=== PATIENT | female | born 1990 | race Two or more races ===

== ENCOUNTER 2020-01-12 07:40 | Outpatient (REF) | payer OTHER, SELFPAY ==
[2020-01-12 08:05] LABS: COVID-19 Test Negative (Negative); IDNOW Serial# 55D5AD1C
== END 2020-01-12 07:41 | disposition home or self-care (01) ==
LOC: HO.EMPCOV 07:40
PROVIDERS: PCP Internal Medicine; Visit Provider Internal Medicine
DX: Z20.828 Contact with and (suspected) exposure to other viral communicable diseases (principal)
CPT/HCPCS: 87635; C9803

== ENCOUNTER 2020-01-31 10:15 | Outpatient (REF) | payer OTHER, SELFPAY ==
[2020-01-31 10:53] LABS: COVID-19 Test Positive (Negative)
== END 2020-01-31 10:16 | disposition home or self-care (01) ==
LOC: HO.EMPCOV 10:15
PROVIDERS: PCP Internal Medicine; Visit Provider Internal Medicine
DX: Z20.828 Contact with and (suspected) exposure to other viral communicable diseases (principal)
CPT/HCPCS: 87635; C9803

== ENCOUNTER 2024-04-26 12:47 | Outpatient (AMB) | payer OTHER, SELFPAY ==
[2024-04-26 12:50] VITALS: BP 108/64; PULSE 70; RESP 20; TEMP 37.2; O2SAT 98; BMI 38.7
--- NOTE | 2024-04-26 12:50 | MHC.PC.OV ---
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 Pt last seen apporx 2015 at this office by Dr. Milton. Medical records have not been requested and have not been received. 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 Milton 2015 Last visit: Last PE: Specialist:no OBGYN:[facility] Past medical history: Depression-not confirmed, per patient Medications: Family HX: maternal grand mother htn, dm, mother dm. Problem: Numbness in the outer toes in the feet, almost feels like they are falling asleep in both legs. The patient reports that this is not constant and it does not happen everyday. 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 1. Little interest or pleasure in doing things: not at all 2. Feeling down, depressed, or hopeless: several days 3. Trouble falling or staying asleep, or sleeping too much: not at all 4. Feeling tired or having little energy: several days 5. Poor appetite or overeating: not at all 6. Feeling bad about yourself - or that you are a failure or have let yourself or your family down: not at all 7. Trouble concentrating on things, such as reading the newspaper or watching television: not at all 8. Moving or speaking so slowly that other people could have noticed. Or the opposite - being so fidgety or restless that you have been moving around a lot more than usual: not at all 9. Thoughts that you would be better off or of hurting yourself in some way: not at all Total score: 2 Depression Screening Interpretation: Negative Depression Screening Done: Yes 18095 - PHQ-9 Billing: Yes Source: Developed by Drs. Theodore Hurst, Alexandria Estrada, Cain Modi and colleagues, with an educational mikael from [employer]. Thrive Questionnaire Date Thrive assessed: 04/26/24 I am a: Patient What is your living situation today?: I have a steady place to live Within the past 12 months, did the food you bought not last and you didn't have the money to get more?: Never true Within the past 12 months, did you worry whether your food would run out before you got money to buy more?: Never true Do you have trouble paying for medicines?: No Do you have trouble getting transportation to medical appointments?: No Do you have trouble paying your heating and electricity bill?: No Do you have trouble taking care of your child, family member or friend?: No Do you have trouble with day-to-day activities such as bathing, preparing meals, shopping, managing finances, etc.?: No Are you currently unemployed and looking for a job?: No Are you interested in more education?: Yes Please select the resources that you would like help with: None Currently or been in a relationship where the following occur: No concerns reported THRIVE Score: 0 AUDIT C Alcohol Use Questionnaire (AUDIT-C) 1. How often do you have a drink containing alcohol?: Monthly or less 2. How many drinks containing alcohol do you have on a typical day when you are drinking?: 1 or 2 3. How often do you have six or more drinks on one occasion?: Never Total Score: 1 CHRIS-7 AMB Questionnaire CHRIS-7 Date CHRIS - 7 assessed: 04/26/24 Feeling nervous, anxious, or on edge: 0 = Not at all Not being able to stop or control worryin = Not at all Worrying too much about different things: 0 = Not at all Trouble relaxin = Not at all Being so restless that it is hard to sit still: 0 = Not at all Becoming easily annoyed or irritable: 0 = Not at all Feeling afraid as if something awful might happen: 0 = Not at all Total CHRIS-7 score (0-4 normal; 5-9 mild; 10-14 moderate; 15-21 severe): 0 Source: Developed by Drs. Theodore Hurst, Alexandria Estrada, Cain Modi and colleagues, with an educational mikael from [employer]. CHRIS-7 Assessment Billing CHRIS-7 Assessment Tool: CHRIS-7 Assessment 46413 Review of Systems Const Denies headache(s) Eyes Denies loss of vision ENT Denies vertigo, Denies dizziness, Denies headache(s) and Denies sore throat Card Denies chest pain, Denies leg edema and Denies lightheadedness Resp Denies cough, Denies hemoptysis and Denies wheezing GI Denies abdominal pain, Denies melena, Denies constipation, Denies diarrhea and Denies vomiting Denies urinary frequency, Denies dysuria and Denies urinary urgency Musc Denies arthralgias, Denies joint swelling, Reports numbness (intermittently in both legs/feet and outer toes) and Denies tingling Neuro Denies Abnormal speech present, Denies behavioral changes, Denies vertigo, Denies dizziness, Denies headache(s), Denies loss of vision, Denies memory loss, Reports numbness (intermittently in both legs/feet and outer toes) and Denies tingling Psych Denies anxiety, Denies behavioral changes, Denies depression, Denies memory loss and Denies panic attacks Maurice/Lymph Denies easy bleeding and Denies easy bruising Aller/Immun Denies wheezing Physical exam (Primary Care) Vital Signs: Last Vital Signs Temp 99.0 F 04/26/24 12:50 Pulse 70 04/26/24 12:50 Resp 20 04/26/24 12:50 BP 108/64 04/26/24 12:50 Pulse Ox 98 04/26/24 12:50 Oxygen Delivery Method Room Air 04/26/24 12:50 BMI result Body Mass Index 38.7 Tobacco/Smoking Status: Tobacco use Status Tobacco use date assessed 04/26/24 04/26/24 13:07 Patient Tobacco Use Status Never used Tobacco 04/26/24 13:07 e-Cigarette/Vaping Use Never Used 04/26/24 13:07 PHQ-9: PHQ-9 Score PHQ-9: Total score 2 04/26/24 13:25 Depression Screening Interpretation: Negative Thrive Assessment: Date of Thrive Assessment Date Thrive assessed 04/26/24 04/26/24 13:07 Currently or been in a relationship where the following occur: No concerns reported Const General: healthy appearing, no acute distress, alert and awake Nutritional Appearance: well nourished Orientation/consciousness: oriented to person, oriented to place and oriented to time HENMT Ears: TM's normal bilaterally General nose exam: Normal nasal mucous membranes and turbinates present Eyes Conjunctivae: conjunctivae normal Sclerae: sclerae normal Pupils: Equal, round and reactive pupils present Neck Neck: Yes no lymphadenopathy and Yes no JVD Thyroid: Thyroid normal Carotids: no bruits Resp Effort & Inspection: normal respiratory effort and not tachypneic Auscultation: no crackles, no rales, no rhonchi and no wheezes Cardio Rate: regular rate Rhythm: regular rhythm Heart sounds: no murmurs and normal S1 and S2 GI Palpation (GI): Soft to palpation, nontender, no hepatomegaly and no splenomegaly Auscultation: normal bowel sounds Skin General skin exam: no rashes or lesions noted and dry skin Neuro General: oriented to person, oriented to place and oriented to time Cranial nerves: Yes Equal, round and reactive pupils present Speech: No Abnormal speech present Gait exam (Neuro): Normal gait present Motor exam (neuro): no tremor noted Extrem Right upper extremity: full ROM Left upper extremity: full ROM Right lower extremity: full ROM; no edema Left lower extremity: full ROM; no edema Psych Mental Status: mental status grossly normal Speech and movement: Normal speech and movement present Affect: normal affect Attitude: cooperative Thought process: Normal thought process present Coding Level of Care Code New Pt Level 3 (48451) Diagnoses Numbness of both lower extremities R20.0 Additional Codes CHRIS-7 Assessment Billing - CHRIS-7 Assessment Tool: CHRIS-7 Assessment 97228 ([id number]) PHQ-9 - 24005 - PHQ-9 Billing: Yes ([id number]) Time Spent (min) 29 Assessment & Plan Assessment & Plan (1) Numbness of both lower extremities: Code(s): R20.0 - Anesthesia of skin Category: Medical Plan: The patient reports that at times setting at work-sometimes her outer toes go numb in both feet. 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 Will order blood work to evaluate. The patient to return in 6 weeks for annual physical Orders: Orders Complete Blood Count Auto Diff 05/03/24 Z00.00 - Encounter for general adult medical examination without abnormal findings Vitamin D 25-OH Total 05/03/24 Z00.00 - Encounter for general adult medical examination without abnormal findings TSH reflex Free T4 05/03/24 Z00. - Encounter for general adult medical examination without abnormal findings Vitamin B12 05/03/24 Z00. - Encounter for general adult medical examination without abnormal findings Magnesium 05/03/24 Z00.00 - Encounter for general adult medical examination without abnormal findings Comprehensive [place]. Panel Fast 05/03/24 Z00. - Encounter for general adult medical examination without abnormal findings UA CC w/rflx Micro + Cult 05/03/24 Z00. - Encounter for general adult medical examination without abnormal findings Glucose Fasting 05/03/24 Z00.00 - Encounter for general adult medical examination without abnormal findings
== END 2024-04-26 13:39 | disposition home or self-care (01) ==
LOC: HO.HMCH 12:48
DX: R20.0 Anesthesia of skin (principal)

== ENCOUNTER → 2024-04-26 12:47 | Outpatient (BNVA) | payer OTHER, SELFPAY | DX: Z76.89 Persons encountering health services in other specified circumstances (principal); R20.0 Anesthesia of skin | CPT/HCPCS: 96127 ==

== ENCOUNTER 2024-05-03 07:42 | Outpatient (REF) | payer OTHER, SELFPAY ==
[2024-05-03 07:58] LABS: MANUAL DIFF FLAG NO
[2024-05-03 08:12] LABS: Basophils Percent Auto 0.5 % (0-2); Eosinophils Absolute Auto 0.2 X10*3/uL (0.0-0.4); Eosinophils Percent Auto 2.7 % (0-4); Hematocrit 42.3 % (37.0-47.0); Hemoglobin 14.2 g/dl (12.0-16.0); Imm Gran Abs Auto 0.02 X10*3/uL (0.00-0.03); Imm Gran Pct Auto 0.2 % (0.0-0.4); Lymphocytes Absolute Auto 1.9 X10*3/uL (1.2-4.9); Lymphocytes Percent Auto 22.1 % (20-40); Mean Corpuscular HGB Conc 33.6 g/dl (31.0-35.0); Mean Corpuscular Hemoglobin 28.9 pg (27.0-33.0); Mean Corpuscular Volume 86.2 fL (80.0-98.0); Monocytes Absolute Auto 0.6 X10*3/uL (0.1-1.2); Monocytes Percent Auto 7.5 % (2-11); Neutrophils Absolute Auto 5.7 x10*3/uL (2.0-8.3); Platelet Count 232 X10*3/uL (160-400); Red Blood Count 4.91 X10*6/uL (4.20-5.50); Red Cell Distribution Width 12.1 % (11.0-16.0); White Blood Count 8.5 X10*3/uL (4.8-10.8)
[2024-05-03 08:33] LABS: Appearance Urine Clear; Color Urine Yellow; Glucose Urine UA Negative (Negative); Leukocyte Esterase Urine Negative (Negative); Nitrite Urine Negative (Negative); PH 5.5 (5.0-9.0); Urine Blood Negative (Negative); Urine Ketones Negative (Negative); Urine Protein Negative (Neg-Trace)
[2024-05-03 08:57] LABS: Alanine Aminotransferase 26 U/L (0-31); Albumin Level 4.1 g/dL (3.5-5.0); Alkaline Phosphatase 59 U/L (39-117); Anion Gap 10 (12-20); Aspartate Amino Transferase 19 U/L (5-31); Bilirubin Total 0.5 mg/dL (0.0-1.0); Blood Urea Nitrogen 15 mg/dL (9-16); Calcium 9.1 mg/dL (8.4-10.2); Carbon Dioxide 26 mmol/L (22-29); Chloride 109 mmol/L (96-108); Estimated Glomerular Filt Rate > 60; Glucose Fasting 97 mg/dL (60-99); Magnesium 1.9 mg/dL (1.6-2.6); Potassium 4.3 mmol/L (3.3-5.1); Sodium 141 mmol/L (135-145); Total Protein 7.1 g/dL (6.5-8.0)
[2024-05-03 09:16] LABS: Vitamin B12 360 pg/mL (200-900)
[2024-05-03 09:17] LABS: TSH reflex Free T4 1.58 uIU/mL (0.32-4.0); Vitamin D 25-OH Total 26.3 ng/mL (>30)
== END 2024-05-03 07:43 | disposition home or self-care (01) ==
LOC: HO.LAB 07:42
DX: Z00.00 Encounter for general adult medical examination without abnormal findings (principal)
CPT/HCPCS: 36415; 80053; 81003; 82306; 82607; 83735; 84443; 85025

== ENCOUNTER 2024-06-07 10:50 | Outpatient (AMB) | payer OTHER, SELFPAY ==
[2024-06-07 10:57] VITALS: BP 114/64; PULSE 72; RESP 20; TEMP 37.3; O2SAT 98; BMI 38.9
--- NOTE | 2024-06-07 10:57 | A.OFFPC_ITS ---
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 Required: No Radiator Specialist: Not Required per policy Accompanied by: Self / Same As Patient Allergies No Known Allergies [No Known Allergies*] Allergy (Verified 06/07/24 11:26) Medication List - Last Reconciled 06/07/24 by DEMETRIO Bahena fexofenadine (Darya Allergy) 180 mg PO DAILY Tobacco use date assessed: 06/07/24 Dental Screening Dental Screen Date: 06/07/24 Did you have a dental visit in the last 12 months?: No Did you have a dental problem in the last 6 months where you did not have access to dental care?: No Was dental information given to patient?: Patient has dentist HPI annual physical/ lab review HPI Details The patient is present for annual physical Dentist: have appt coming up Eye: up to date Snellen: Right: Left: Corrected vision: primarily glasses STI screening: Colonoscopy: 2019-she was have rectal bleeding, but the showed to be negative Pap Smer: up to date PHQ-9: Flu:up to date COVID: up to date Tdap: up to date Diet:regular Exercise: no The patient reports a history of right kidney cyst that bleeds intermittently The patient had recent labs done except lipid panel, this was ordered and the patient will get done as soon as possible [facility] Surgical History No pertinent past surgical history Family History Mother Hypertension Gestational diabetes Maternal Grandmother Diabetes Hypertension Social History Household Members: Spouse and Children Housing: House Alcohol intake: current Alcohol intake frequency: other Comment: Once a month Patient Tobacco Use Status: Never used Tobacco e-Cigarette/Vaping Use: Never Used Second Hand Smoke Exposure: No service: No 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 1. Little interest or pleasure in doing things: not at all 2. Feeling down, depressed, or hopeless: not at all 3. Trouble falling or staying asleep, or sleeping too much: not at all 4. Feeling tired or having little energy: several days 5. Poor appetite or overeating: not at all 6. Feeling bad about yourself - or that you are a failure or have let yourself or your family down: not at all 7. Trouble concentrating on things, such as reading the newspaper or watching television: not at all 8. Moving or speaking so slowly that other people could have noticed. Or the opposite - being so fidgety or restless that you have been moving around a lot more than usual: not at all 9. Thoughts that you would be better off or of hurting yourself in some way: not at all Total score: 1 Depression Screening Interpretation: Negative Depression Screening Done: Yes Source: Developed by Drs. Theodore Hurst, Alexandria Estrada, Cain Modi and colleagues, with an educational mikael from [employer]. Thrive Questionnaire Date Thrive assessed: 06/07/24 I am a: Patient What is your living situation today?: I have a steady place to live Within the past 12 months, did the food you bought not last and you didn't have the money to get more?: Never true Within the past 12 months, did you worry whether your food would run out before you got money to buy more?: Never true Do you have trouble paying for medicines?: No Do you have trouble getting transportation to medical appointments?: No Do you have trouble paying your heating and electricity bill?: No Do you have trouble taking care of your child, family member or friend?: No Do you have trouble with day-to-day activities such as bathing, preparing meals, shopping, managing finances, etc.?: No Are you currently unemployed and looking for a job?: No Are you interested in more education?: Yes Please select the resources that you would like help with: None Currently or been in a relationship where the following occur: No concerns reported THRIVE Score: 0 AUDIT C Alcohol Use Questionnaire (AUDIT-C) 1. How often do you have a drink containing alcohol?: Monthly or less 2. How many drinks containing alcohol do you have on a typical day when you are drinking?: 1 or 2 3. How often do you have six or more drinks on one occasion?: Never Total Score: 1 Score Reviewed/Action Taken: No CHRIS-7 AMB Questionnaire CHRIS-7 Date CHRIS - 7 assessed: 06/07/24 Feeling nervous, anxious, or on edge: 0 = Not at all Not being able to stop or control worryin = Not at all Worrying too much about different things: 0 = Not at all Trouble relaxin = Several days Being so restless that it is hard to sit still: 0 = Not at all Becoming easily annoyed or irritable: 0 = Not at all Feeling afraid as if something awful might happen: 0 = Not at all Total CHRIS-7 score (0-4 normal; 5-9 mild; 10-14 moderate; 15-21 severe): 1 Source: Developed by Drs. Theodore Hurst, Alexandria Estrada, Cain Modi and colleagues, with an educational mikael from [employer]. Review of Systems Const Denies headache(s) Eyes Denies loss of vision ENT Denies vertigo, Denies dizziness, Denies headache(s) and Denies sore throat Card Denies chest pain, Denies leg edema and Denies lightheadedness Resp Denies cough, Denies hemoptysis and Denies wheezing GI Denies abdominal pain, Denies melena, Denies constipation, Denies diarrhea and Denies vomiting Denies urinary frequency, Denies dysuria and Denies urinary urgency Musc Denies arthralgias, Denies joint swelling, Reports numbness (in her feet and toes intermittently) and Reports tingling (in her feet and toes intermittently) Neuro Denies Abnormal speech present, Denies behavioral changes, Denies vertigo, Den ies dizziness, Denies headache(s), Denies loss of vision, Denies memory loss, Reports numbness (in her feet and toes intermittently) and Reports tingling (in her feet and toes intermittently) Psych Denies anxiety, Denies behavioral changes, Denies depression, Denies memory loss and Denies panic attacks Maurice/Lymph Denies easy bleeding and Denies easy bruising Aller/Immun Denies wheezing Physical exam (Primary Care) Vital Signs: Last Vital Signs Temp 99.1 F 06/07/24 10:57 Pulse 72 06/07/24 10:57 Resp 20 06/07/24 10:57 BP 114/64 06/07/24 10:57 Pulse Ox 98 06/07/24 10:57 Oxygen Delivery Method Room Air 06/07/24 10:57 BMI result Body Mass Index 38.9 Tobacco/Smoking Status: Tobacco use Status Tobacco use date assessed 06/07/24 06/07/24 11:06 Patient Tobacco Use Status Never used Tobacco 06/07/24 10:58 e-Cigarette/Vaping Use Never Used 06/07/24 10:58 PHQ-9: PHQ-9 Score PHQ-9: Total score 1 06/08/24 08:58 Depression Screening Interpretation: Negative Thrive Assessment: Date of Thrive Assessment Date Thrive assessed 06/07/24 06/07/24 11:06 Currently or been in a relationship where the following occur: No concerns reported Const General: healthy appearing, no acute distress, alert and awake Nutritional Appearance: well nourished Orientation/consciousness: oriented to person, oriented to place and oriented to time HENMT Ears: TM's normal bilaterally General nose exam: Normal nasal mucous membranes and turbinates present Eyes Conjunctivae: conjunctivae normal Sclerae: sclerae normal Pupils: Equal, round and reactive pupils present Neck Neck: Yes no lymphadenopathy and Yes no JVD Thyroid: Thyroid normal Carotids: no bruits Resp Effort & Inspection: normal respiratory effort and not tachypneic Auscultation: no crackles, no rales, no rhonchi and no wheezes Cardio Rate: regular rate Rhythm: regular rhythm Heart sounds: no murmurs and normal S1 and S2 GI Palpation (GI): Soft to palpation, nontender, no hepatomegaly and no splenomegaly Auscultation: normal bowel sounds General: Yes no CVA tenderness Back/Spine/Pelvis Back: no CVA tenderness Skin General skin exam: no rashes or lesions noted and dry skin Neuro General: oriented to person, oriented to place and oriented to time Cranial nerves: Yes Equal, round and reactive pupils present Speech: No Abnormal speech present Gait exam (Neuro): Normal gait present Motor exam (neuro): no tremor noted Extrem Right upper extremity: full ROM Left upper extremity: full ROM Right lower extremity: full ROM; no edema Left lower extremity: full ROM; no edema Psych Mental Status: mental status grossly normal Speech and movement: Normal speech and movement present Affect: normal affect Attitude: cooperative Thought process: Normal thought process present Results Reviewed Results Reviewed: Laboratory Tests 05/03/24 05/03/24 07:51 07:52 WBC 8.5 RBC 4.91 Hgb 14.2 Hct 42.3 MCV 86.2 MCH 28.9 MCHC 33.6 RDW 12.1 Plt Count 232 Sodium 141 Potassium 4.3 Chloride 109 H Carbon Dioxide 26 Anion Gap 10 L BUN 15 Creatinine 0.68 Estimated GFR > 60 Fasting Glucose 97 Calcium 9.1 Magnesium 1.9 Total Bilirubin 0.5 AST 19 ALT 26 Alkaline Phosphatase 59 Total Protein 7.1 Albumin 4.1 Vitamin B12 360 25-OH Vitamin D Total 26.3 L TSH 1.58 Urine Color Yellow Urine Appearance Clear Urine pH 5.5 Ur Specific [place] 1.020 Urine Protein Negative Urine Glucose (UA) Negative Urine Ketones Negative Urine Blood Negative Urine Nitrite Negative Ur Leukocyte Esterase Negative Coding Level of Care Code Est Pt Prev Care 18-39y(84113) Diagnoses Annual physical exam Z00.00 Numbness of both lower extremities R20.0 Vitamin D deficiency E55.9 Time Spent (min) 38 Assessment & Plan Assessment & Plan (1) Annual physical exam: Code(s): Z00.00 - Encounter for general adult medical examination without abnormal fi ndings Category: Medical Plan: Preventative guidelines and recent labs reviewed with the patient. Up to date on most screenings, upcoming appt for dentist. Colonoscopy done 2019 for rectal bleeding which was negative. All general labs were done except lipid, which was ordered for the patient to get done riley. (2) Numbness of both lower extremities: Code(s): R20.0 - Anesthesia of skin Category: Medical Plan: Intermittent and mostly like positional, like when the patient sit and stand for extended periods. Encouraged wearing compression stockings to increased circulation in lower extremities. (3) Vitamin D deficiency: Code(s): E55.9 - Vitamin D deficiency, unspecified Category: Medical Plan: Encouraged Vitamin D3 1000IU, the patient will obtain via otc. Orders: Orders Lipid Panel 06/07/24 Z00.00 - Encounter for general adult medical examination without abnormal findings
== END 2024-06-07 11:44 | disposition home or self-care (01) ==
LOC: HO.HMCH 10:51
DX: Z00.00 Encounter for general adult medical examination without abnormal findings (principal); R20.0 Anesthesia of skin; E55.9 Vitamin D deficiency, unspecified

== ENCOUNTER 2024-08-25 07:47 | Outpatient (REF) | payer OTHER, SELFPAY ==
--- OUTSIDE RECORDS SUMMARY | 2024-08-25 07:51 | XMS_ITS | Patient Health Record ---
Author Organization [facility] Address [address] [place] [address] Care Team Providers Care Glass Embosser Name Role Phone Katlyn Guerrier Primary Care Provider UnavailNaldo Roy Jr Unavailable Reason For Referral No Information Medications Medication SIG (Take, Route, Frequency, Duration) Notes Start Date End Date Status Darya Active Colyte with Flavor Packs 240 GM As directed Orally Over the specified time. for 1 day(s) Active Viorele 0.15-0.02/0.01 MG (29/06) TAKE 1 TABLET BY MOUTH DAILY Oral for 84 Active Social History Tobacco Use: Social History Observation Description Date Details (start date - stop date) Never Smoker NA - NA Tobacco Use/Smoking Question Answer Notes Patient is a nonsmoker Alcohol Screen Question Answer Notes Did you have a drink contain ing alcohol in the past year? Yes How often did you have a dri nk containing alcohol in the past year? Monthly or less (1 point) How many drinks did you have on a typical day when you were drinking in the past year? 1 or 2 drinks (0 point) How often did you have 6 or more drinks on one occasion in the past year? Never (0 point) Points 1 Interpretation Negative Problems Problem Type SNOMED Code ICD Code Onset Dates Problem Status W/U Status Risk Notes Problem [id number] Rectal bleeding (K62.5) Active confirmed Plan Of Treatment Future Test Test Name Order Date COLONOSCOPY 09/24/2016 Insurance Providers Payer Name Payer Address Payer Phone Subscriber Number Group Number Insured Name Patient Relationship to Insured Coverage Start Date Coverage End Date [facility] [address] [place] [phone] [id number] SHELLY HUMPHREY Self - patient is the insured Medical (General) History Medical History History ICD Code Denies ID,DM,CVA,Lung disease,renal dise ase environmental allergies
[2024-08-25 09:00] LABS: Cholesterol 159 mg/dL (<200); HDL Cholesterol 46 mg/dL (>40); Triglycerides 88 mg/dL (<150)
== END 2024-08-25 07:48 | disposition home or self-care (01) ==
LOC: HO.LAB 07:47
DX: Z00.00 Encounter for general adult medical examination without abnormal findings (principal)
CPT/HCPCS: 36415; 80061; 82947